=== PATIENT | female | born 1950 | race Caucasian/White ===

== ENCOUNTER → 2019-11-06 14:28 | Outpatient (CLI) | payer MEDICARE, SELFPAY ==
--- NOTE | 2019-11-06 | LES_PTH ---
PATIENT: NENA POLK LOC: [facility] U#:[id number] AGE/SX: 75/F ROOM: RE11/06/[address]: Dr. Bakari Johnson MD : 1950 BED: DIS: SPEC #: [id number] RECD: 11/06/19 14:12 STATUS: ANA BERNADETTE #: [id number] MARCELO: 11/06/19 00:[address]: Bakari Johnson DEPT: SURGICAL PATHOLOGY RECD BY: Shan Rose ENTERED: 11/07/19 11:28 SP TYPE: Lesion OTHR DR: No Primary Care Phys Tissues: Skin of arm Procedures: Surgery Specimen Level IV HEADER OPERATION: Excision right elbow lesion PRE-OP DIAGNOSIS: Neoplasm right arm TISSUE SUBMITTED: Right elbow tissue MICROSCOPIC DIAGNOSIS Skin and soft tissue of right elbow, biopsy: Minimal invasive squamous cell carcinoma, keratoacanthomatous type. Extensive solar elastosis. Mild chronic inflammation. See comment. AM:hallie 11/08/19 COMMENT The lesion is excised in the planes examined. Case has been reviewed in consultation with Dr. Canela who concurs with the above diagnosis. IDC:SJ MICROSCOPIC DESCRIPTION Slides are reviewed. GROSS DESCRIPTION Received in fixative is one container labeled with the patient's name and designated right elbow. The specimen consists of an ellipse of light urbina excised skin measuring 2.8 x 1.2 x 0.2 cm. The cutaneous surface displays an exophytic firm, white lesion measuring 1.2 cm in greatest dimension. The specimen is inked, serially sectioned and totally submitted in two cassettes as follows: 1 - tips, 2 - remainder of the specimen. / AM:hallie 11/07/19 TC:0 CPT: 04359
[2019-11-06 12:59] VITALS: BMI 17.5
== END ==
PROVIDERS: Referring Provider Surgery; Visit Provider Surgery
DX: C44.622 Squamous cell carcinoma of skin of right upper limb, including shoulder (principal); L57.8 Other skin changes due to chronic exposure to nonionizing radiation
CPT/HCPCS: 88305

== ENCOUNTER → 2020-09-25 | Outpatient (CLI) | payer MEDICARE, SELFPAY ==
[2019-11-06 12:59] VITALS: BMI 17.5
--- NOTE | 2020-09-24 | LES_PTH ---
[facility] POL[id number] AGE/SX: 70/F ROOM: RE09/25/[address]: Dr. Bakari Johnson MD : 1950 BED: DIS: 09/25/2020 SPEC #: [id number] RECD: 09/25/20 10:40 STATUS: ANA REToribio #: [id number] MARCELO: 09/24/20 00:[address]: Bakari Johnson DEPT: SURGICAL PATHOLOGY RECD BY: Shan Rose ENTERED: 09/25/20 10:41 SP TYPE: Lesion OTHR DR: No Primary Care Phys Tissues: Skin of forehead Procedures: Surgery Specimen Level IV HEADER OPERATION: Excision forehead lesion PRE-OP DIAGNOSIS: Skin cancer of forehead TISSUE SUBMITTED: Forehead tissue, transverse ellipse, suture smith lateral aspect MICROSCOPIC DIAGNOSIS Skin lesion of forehead, excision: Verrucoid keratosis, mildly inflamed. Solar elastosis. Demodex folliculorum. No evidence of malignancy. AM:hallie 09/28/2020 MICROSCOPIC DESCRIPTION Slides are reviewed. GROSS DESCRIPTION Received in fixative is one container labeled with the patient's name and designated forehead. The specimen consists of an ellipse of light urbina excised skin measuring 2.4 x 1.1 cm and a depth of excision measuring 0.4 cm. One tip contains a suture. This tip is inked in yellow ink. The opposite tip is inked in black ink. The remainder of the specimen is inked in blue ink. The specimen is serially sectioned and totally submitted in two cassettes. / AM:hallie 09/25/20 TC:5 CPT: 11473
== END | disposition home or self-care (01) ==
LOC: LABSPEC 09:16
PROVIDERS: Referring Provider Surgery; Visit Provider Surgery
DX: L57.0 Actinic keratosis (principal); B88.0 Other acariasis
CPT/HCPCS: 88305

== ENCOUNTER 2022-04-08 06:42 | Day surgery (SDC) | payer MEDICARE, SELFPAY ==
[2022-04-08] VITALS (9 sets, daily range): BP systolic 118–154; BP diastolic 69–93; PULSE 58–71; RESP 16–18; TEMP 36.1–36.9; O2SAT 99–100; BMI 16.5
--- NOTE | 2022-04-08 | COLBX_PTH ---
PATIENT: NENA POLK LOC: [facility] U#:[id number] AGE/SX: 72/F ROOM: RE04/08/[address]: Dr. Bakari Johnson MD : 1950 BED: DIS: 04/08/2022 SPEC #: [id number] RECD: 04/08/22 12:04 STATUS: ANA FLEMING #: [id number] MARCELO: 04/08/22 00:[address]: Bakari Johnson DEPT: SURGICAL PATHOLOGY RECD BY: Shan Rose ENTERED: 04/08/22 12:04 SP TYPE: COLON BX OTHR DR: Dr. Guadalupe Valle DO Tissues: COLON BIOPSY Procedures: Surgery Specimen Level IV HEADER OPERATION: Colonoscopy (MOD) PRE-OP DIAGNOSIS: Diarrhea TISSUE SUBMITTED: Random colon biopsy MICROSCOPIC DIAGNOSIS Colon, random biopsy: Fragments of colonic mucosa, no pathologic diagnosis. PRATIK:hallie 04/12/2022 MICROSCOPIC DESCRIPTION Slides are reviewed. GROSS DESCRIPTION Received in fixative is one container labeled with the patient's name and designated random colon biopsy. The specimen consists of multiple irregular fragments of light urbina soft tissue that in aggregate measure 2.5 x 0.5 x 0.1 cm. The specimen is totally submitted in one cassette. / SJ:rg 04/08/2022 TC:4 CPT: 72296
--- NOTE | 2022-04-08 06:45 | HP.PCM_ITS ---
History and Physical Date of Admission: 04/08/22 Visit Reasons:?Diarrhea/C-Scope Chief Complaint: Diarrhea/C-Scope Big Data Lead Required: No Is patient in pain?: No Allergies No Known Allergies Allergy (Verified 03/31/22 07:33) Medications No Known/Unobtainable [No Known Home Medications]? 10/31/16 [History Confirmed 03/31/22] PFSH Medical History? 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 history excision skin lesion forehead (~09/25/20) History of arthroplasty of finger of right hand History of esophagogastroduodenoscopy (EGD) (~1997) History of partial gastrectomy (~1997) History of partial thyroidectomy (~2000) History of squamous cell carcinoma excision Family History? Mother Heart diseaseFather Heart disease Myocardial infarction Cancer ?? ? lungSister CVA (cerebral vascular accident) Social History? Smoking Status:? Never smoker HPI HPI HPI: NENA POLK, is a 72 F who presents to the office today for consultation r egarding diarrhea.? The patient is being referred by Dr. Guadalupe Valle and a written copy of my surgical consult recommendations will return to her.? The patient will have loose stools once to twice daily.? No bright red blood no fevers no abdominal pain.? This has been ongoing for 2 months.? She has never had a colonoscopy.? In 1997 though she did have a partial gastrectomy.? She has had a remote thyroidectomy. Dual analysis was done by Dr. Guadalupe Valle and was unremarkable.? The patient does not correlate with the onset with anything in particular.? She thinks she has lost some weight however as a consequence.? She otherwise remains healthy and swims and bicycle rides and works in her garden.? Family history notable for a mother who had diverticular disease and a paternal grandfather who had colon cancer. ROS General General: Yes weight change; No appetite, fatigue, colon cancer, breast cancer or weakness HEENT HEENT: No difficulty swallowing, eye injury, eye surgery, swollen glands or hoarseness Endo Endocrine: No thyroid disease, diabetes mellitus, thyroid cancer, Hair loss, heat intolerance or cold intolerance Skin Skin: No rash or changing moles Musc Musculoskeletal: Yes back problems and arthritis; No rheumatoid arthritis, gout or joint pain Cardio Cardiovascular: No murmur, pacemaker, heart disease, atrial fibrillation, high blood pressure, heart attack, heart stent, palpitations, shortness of breat with exertion or chest pain Psych Psychiatric: No depression, anxiety or hearing voices Resp Respiratory: No shortness of breath, No sleep apnea, No cough, No COPD, No asthma, No emphysema and No wheezing Gastro Gastrointestinal: Yes abdominal pain, No nausea or vomiting, Yes diarrhea, No constipation, No blood in stool, No acid reflux, Yes hemorrhoids, No ulcers, No gallbladder problem and No black,tarry stools Rashaad Hematologic: No blood thinners, No blood disorders, No bleeding, No anemia and No blood clots Neuro Neurologic: No system reviewed and no additional complaints, except as documented, No as per HPI, No abnormal gait, No abnormal hearing, No abnormal movements, No abnormal speech, No behavioral changes, No burning sensations, No confusion, No convulsions, No disequilibrium, No dizziness, No localized weakness, No frequent falls, No headache(s), No lack of coordination, No loss of vision, No memory loss, No numbness, No other visual disturbances, No radicular pain, No restless legs, No sensory deficit, No syncope, No tingling, No tremor(s), No weakness and No other Exam Const General: cooperative, healthy appearing, comfortable and no acute distress Nutritional Appearance: underweight [facility] Head: normal to inspection Eyes General: appearance normal, both eyes and all related structures Neck Neck: normal visual inspection Resp Effort & Inspection: normal respiratory effort Auscultation: clear to auscultation bilaterally Cardio Rate: regular rate Rhythm: regular rhythm GI Palpation: soft and no hepatosplenomegaly Auscultation: normal bowel sounds Skin General: no rashes or lesions noted Neuro General: patient alert, patient awake and patient oriented x3 Extrem General: no calf tenderness Psych Appearance: grossly normal Assessment and Plan Assessment and Plan (1) Diarrhea: ?Status:?Acute ?Plan: Very pleasant 72-year-old female who now has had almost 3 months of unexplained diarrhea.? Associated with this is weight loss.? Stool analysis not remarkable.? She has never had a colonoscopy. I do propose for her colonoscopy with possible biopsy or polypectomy as indicated.? She is aware of the technique, benefit, risk of alternatives.? She has had an opportunity to ask and have questions answered.? We will schedule and expedite her care. I appreciate the opportunity of assisting with her surgical care Copy: Dr. Guadalupe Johnson M.D., F.A.C.S. I have re-examined the patient. There are no clinical changes since date of exam. Bakari Johnson M.D., F.A.C.S.
[2022-04-08] MEDS: Lactated Ringers 1,000 ML 15 ML IV (07:16)
[2022-04-08] MEDS: Midazolam 5 MG/ML Syringe (08:18)
--- NOTE | 2022-04-08 08:42 | OP.COLON_ITS ---
Patient Name: Demi Valiente Procedure Date: 04/08/2022 8:08 AM Date of : 1950 Age: 72 Procedure: Colonoscopy Indications: Chronic diarrhea Providers: Bakari Johnson MD Medicines: Midazolam 3.5 mg IV, Meperidine 75 mg IV Patient Profile: Last Colonoscopy: none. The patient's first colonoscopy is today. Complications: No immediate complications. Procedure: Pre-Anesthesia Assessment: - Prior to the procedure, a History and Physical was performed, and patient medications and allergies were reviewed. The patient's tolerance of previous anesthesia was also reviewed. The risks and benefits of the procedure and the sedation options and risks were discussed with the patient. All questions were answered, and informed consent was obtained. Prior Anticoagulants: The patient has taken no previous anticoagulant or antiplatelet agents. ASA Grade Assessment: II - A patient with mild systemic disease. After reviewing the risks and benefits, the patient was deemed in satisfactory condition to undergo the procedure. After I obtained informed consent, the scope was passed under direct vision. Throughout the procedure, the patient's blood pressure, pulse, and oxygen saturations were monitored continuously. The was introduced through the anus and advanced to the cecum, identified by appendiceal orifice and ileocecal valve. The colonoscopy was somewhat difficult due to a redundant colon. Successful completion of the procedure was aided by increasing the dose of sedation medication and using manual pressure. The patient tolerated the procedure well. The quality of the bowel preparation was good. The terminal ileum and the appendiceal orifice were photographed. Moderate Sedation: Moderate (conscious) sedation was personally administered by the endoscopist. The following parameters were monitored: oxygen saturation, heart rate, blood pressure, and response to care. Total physician intraservice time was 15 minutes. Scope In: 8:20:53 AM Scope Withdrawal Time 0 hours 7 minutes 4 seconds Scope Out: 8:35:59 AM Total Procedure Duration Time 0 hours 15 minutes 6 seconds Findings: Hemorrhoids were found on perianal exam. An area of mildly fragile mucosa with contact bleeding was found at the hepatic flexure. The exam was otherwise normal throughout the examined colon. Biopsies for histology were taken with a cold forceps from the entire colon for evaluation of microscopic colitis. Impression: - Hemorrhoids found on perianal exam. - Right colon somewhat fragile with relatively easy scope trauma bleeding/ mucosa appears normal. No acute findings. - Biopsies were taken with a cold forceps from the entire colon for evaluation of microscopic colitis. Recommendation: - Discharge patient to home. - Resume previous diet. - Continue present medications. - Telephone my office for pathology results in 1 week. - Repeat colonoscopy is not recommended due to current age (66 years or older) for screening purposes. Procedure Code(s): --- Professional --- 54002, Colonoscopy, flexible; with biopsy, single or multiple 62622, 59, Moderate sedation services provided by the same physician or other qualified health transitional care manager performing the diagnostic or therapeutic service that the sedation supports, requiring the presence of an independent trained observer to assist in the monitoring of the patient's level of consciousness and physiological status; initial 15 minutes of intraservice time, patient age 5 years or older Diagnosis Code(s): --- Professional --- K64.9, Unspecified hemorrhoids K92.2, Gastrointestinal hemorrhage, unspecified K52.9, Noninfective gastroenteritis and colitis, unspecified CPT copyright 2017 [employer]. All rights reserved. The codes documented in this report are preliminary and upon mechanical test technician review may be revised to meet current compliance requirements. Bakari Johnson MD 04/08/2022 8:42:24 AM This report has been signed electronically. Number of Addenda: 0 Note Initiated On: 04/08/2022 8:08 AM
--- NOTE | 2022-04-08 08:43 | OP.CCLET_ITS ---
04/08/2022 Guadalupe Valle [address] [place] [address] Re : Colonoscopy procedure for Demi Valiente Dear Dr. Valle This procedure was performed on Friday, April 08, 2022. My impressions and recommendations are as follows: Impressions : - Hemorrhoids found on perianal exam. - Right colon somewhat fragile with relatively easy scope trauma bleeding/ mucosa appears normal. No acute findings. - Biopsies were taken with a cold forceps from the entire colon for evaluation of microscopic colitis. Recommendations : - Discharge patient to home. - Resume previous diet. - Continue present medications. - Telephone my office for pathology results in 1 week. - Repeat colonoscopy is not recommended due to current age (66 years or older) for screening purposes. My findings are described in the full procedure note, which is enclosed. If I can be of further assistance, please feel free to contact me at Doctor phone number(s): Work: . Sincerely, Bakari Johnson MD 04/08/2022 8:42:24 AM This report has been signed electronically.
--- NOTE | 2022-04-08 09:21 | SUR.PHASEII ---
DR. ZELAYA CAME OUT AND STATED PATIENT WAS FEELING NAUSEOUS AND THAT SHE NEEDED TO BE REASSESSED. I WENT INTO THE ROOM AND PATIENT SAID NAUSEA WAS SUBSIDING. VITALS WERE BP 131/71, PULSE 57, RESPS 20, AND SP02 99%. SHE DENIES NEED FOR NAUSEA MEDICATION. SHE HOWEVER WANTED TO SIT ON THE EDGE OF THE BED A LITTLE BIT UNTIL SHE WAS FEELING READY TO GO. THIS NURSE TOLD HER TO LET ME KNOW IF SHE CHANGES HER MIND ABOUT NAUSEA MEDICATION AND OR SHE IS FEELING BETTER AND READY TO BE WHEELED OUT.
== END 2022-04-08 09:42 | disposition home or self-care (01) ==
LOC: EN 06:43 → AC 06:44
PROVIDERS: PCP Internal Medicine; Referring Provider Internal Medicine; Visit Provider Surgery
PROC: 0DJD8ZZ Inspection of Lower Intestinal Tract, Via Natural or Artificial Opening Endoscopic (ICD-10-PCS; CPT 45378; principal; 2022-04-08 07:55)
DX: Z12.11 Encounter for screening for malignant neoplasm of colon (principal); K64.9 Unspecified hemorrhoids; Q43.8 Other specified congenital malformations of intestine; Z80.0 Family history of malignant neoplasm of digestive organs
CPT/HCPCS: 45380; 88305; 99152; 99153; J7120

== ENCOUNTER → 2025-07-17 | Outpatient (CLI) | payer MEDICARE, SELFPAY ==
[2025-07-17 08:43] LABS: Hematocrit 43.1 % (37-47); Hemoglobin 14.0 g/dL (12.0-15.0); Immature Granulocytes Count 0.010 X10^3/uL (0.0-0.0); Mean Corp Hgb Conc 32.5 g/dL (32-36); Mean Corpuscular Volume 92.7 fL (81-99); Mean Platelet Vol. 9.9 fl (6.2-12.0); NRBC Flagged by Analyzer 0 % (0-5); Platelet Count 258 K/mm3 (150-450); RBC Distribution Width CV 12.2 % (11.6-14.6); RBC Distribution Width SD 41.7 fl (35.1-43.9); Red Blood Count 4.65 M/mm3 (4.2-5.4); White Blood Count 6.3 K/mm3 (4.4-11.0)
[2025-07-17 09:10] LABS: AST(SGOT) 28 U/L (<=31); Alanine Aminotransfer ALT/SGPT 16 U/L (<=34); Albumin, Serum 4.3 g/dL (3.4-4.8); Alkaline Phosphatase 69 U/L (35-104); Anion Gap 9 (5-15); BUN 12 mg/dL (4-19); BUN/Creat Ratio 15.7 RATIO (10-20); Calcium,Total 9.5 mg/dL (7.6-11.0); Carbon Dioxide 27.8 mmol/L (21.0-32.0); Chloride 104 mmol/L (98-108); Cholesterol 275 mg/dL (<=200); Globulin 2.6 g/dL (2.2-4.2); Glucose 98 mg/dL (70-99); Low Density Lipoprotein Calc. 178 mg/dL; Potassium 4.6 mmol/L (3.3-5.1); Triglycerides 85 mg/dL; Very Low Density Lipoprotein 17 mg/dL (5-40); cholesterol:hdl ratio screen 3.32
== END | disposition home or self-care (01) ==
LOC: LAB 08:22
PROVIDERS: PCP Nurse Practitioner Family; Referring Provider Nurse Practitioner Family; Visit Provider Nurse Practitioner Family
DX: E78.5 Hyperlipidemia, unspecified (principal); I10 Essential (primary) hypertension
CPT/HCPCS: 36415; 80053; 80061; 85025